=== PATIENT | female | born 1965 | race Caucasian/White ===

== ENCOUNTER 2019-08-23 16:10 | Emergency (ER) | payer OTHER, SELFPAY ==
[2019-08-23 16:24] VITALS: BP 112/96; PULSE 98; RESP 18; TEMP 36.8; O2SAT 98
--- NOTE | 2019-08-23 16:27 | ED.URI ---
HPI - URI/Sore Throat General Chief Complaint: Upper Respiratory Infection Stated Complaint: sore throat/cough Time Seen by Provider: 08/23/19 16:27 Source: patient and RN notes reviewed Mode of arrival: ambulatory Limitations: no limitations History of Present Illness HPI Narrative: A 53 y/o female, who is a nonsmoker and nondrinker, presents to the with a worsening sore throat and scratchy voice for the past 5 days. She reports associated mildly productive cough and rib pain from coughing. She denies any fevers, ear ache, edema, CP, vomiting, and all other medical complaints at this time. MD elicited complaint: sore throat Onset (ago): day(s) (5) Consistency: progressively worsening Associated symptoms: voice changes (scratchy), cough (mildly productive) and other (rib pain from coughing) Related Data Home Medications Medication Instructions Recorded Confirmed allopurinol 300 mg PO DAILY 08/23/19 08/23/19 dapagliflozin [Farxiga] 10 mg PO DAILY 08/23/19 08/23/19 glipizide 10 mg PO BID 08/23/19 08/23/19 losartan 12.5 mg PO DAILY 08/23/19 08/23/19 metformin 1,000 mg PO BID 08/23/19 08/23/19 omeprazole magnesium [Prilosec OTC] 20 mg PO DAILY 08/23/19 08/23/19 triamterene-hydrochlorothiazid 1 cap PO QAM 08/23/19 08/23/19 Allergies Allergy/AdvReac Type Severity Reaction Status Date / Time oxaprozin Allergy Mild Rash Verified 08/23/19 16:28 propoxyphene Allergy Mild Rash Verified 08/23/19 16:28 Review of Systems Review of Systems: Narrative: General/Constitutional: No weight loss,fever Eyes: N0: Redness,discharge Ears/Nose/Throat: No: Epistaxis,ear discharge, ear ache. Reports a sore throat and scratchy voice. Respiratory: Denies: Hemoptysis. Reports a mildly productive cough and rib pain from the cough. Cardio: No: CP or edema. Gastrointestinal: No Vomiting, Bleeding-rectal Skin: No Lumps, eruption Neurologic: No Focal Weakness,Sz Hematologic: Denies: Petechiae/Purpura Psychiatric: No: Suicida ideationl All Other Systems: Reviewed and Negative [facility] Past Medical History Medical History Arthritis Bilateral carpal tunnel syndrome DM (diabetes mellitus) History of kidney stones History of ovarian cyst Hx of migraines Surgical History Surgical History History of bilateral carpal tunnel release History of cholecystectomy History of dilation and curettage History of hysterectomy Social History Social History (Updated 08/23/19 @ 16:54 by Genaro Messer) Smoking status: Never smoker Exam Narrative: Exam Narrative: General Appearance: Well appearing, Well nourished EYE: PERRLA, Conjunctiva clear Ears: Auditory canal normal, TM normal Nose: Rhinorrhea, Mucousal erythema Mouth/Throat: MM moist, Uvula midline, Pharyngeal erythema Neck: Supple, No adenopathy Respiratory: No respiratory distress, Breath sounds equal, Clear to auscultation(with rare wheeze] Cardiovascular: RRR, No JVD Musculoskeletal: Non tender, Normal strength Skin: Warm, Dry Neurological: A&O x3, CN II-XII intact Psychiatric: Normal mood, Normal affect Course Vital Signs Vital signs: Vital Signs Temperature 98.3 F 08/23/19 16:24 Pulse Rate 98 08/23/19 16:24 Respiratory Rate 18 08/23/19 16:24 Blood Pressure 112/96 H 08/23/19 16:24 Pulse Oximetry 98 08/23/19 16:24 Temperature 98.3 F 08/23/19 16:24 Pulse Rate 98 08/23/19 16:24 Respiratory Rate 18 08/23/19 16:24 Blood Pressure 112/96 H 08/23/19 16:24 Pulse Oximetry 98 08/23/19 16:24 MDM - URI/Sore Throat Lab Data Labs: Influenza A Screen Negative Reference Range: Negative Influenza B Screen Negative Reference Range: Negative Discharge Plan Discharge Clinical Impression: Influenza-like illness Patient Disposition: Home, Self-Care Condition: Stable Instructions: Antibiotic Form, Acute
== END 2019-08-23 16:51 | disposition home or self-care (01) ==
PROVIDERS: Emergency Provider Emergency Medicine
DX: J02.9 Acute pharyngitis, unspecified (principal); R05 Cough; M19.90 Unspecified osteoarthritis, unspecified site; E11.9 Type 2 diabetes mellitus without complications
CPT/HCPCS: 87804; 99203; G0463

== ENCOUNTER 2022-02-11 10:08 | Emergency (ER) | payer BC, SELFPAY ==
[2022-02-11 10:39] VITALS: BP 117/63; PULSE 73; RESP 18; TEMP 37.1; O2SAT 100
--- NOTE | 2022-02-11 10:43 | ED.EYEPROB ---
HPI - Eye Problem General Chief complaint: Skin/Abscess/Foreign Body Stated complaint: swollen lt eye,rash Time Seen by Provider: 02/11/22 11:00 Source: patient and RN notes reviewed Mode of arrival: ambulatory Limitations: no limitations History of Present Illness HPI Narrative: 48-year-old female presents with concern for left eyelid redness, swelling. She also reports itchy red spots on her arms, face, neck. She reports these occurred after she was doing yard work on Thursday. Reports she used essential oil on the areas without relief. She denies trouble breathing, swollen lips, swollen tongue, trouble swallowing. She reports new spots have appeared after doing yard work on Thursday. MD chief complaint: eye redness Related Data Home Medications Medication Instructions Recorded Confirmed glipizide 10 mg tablet 10 mg PO BID 08/23/19 02/11/22 metformin 1,000 mg tablet 1,000 mg PO BID 08/23/19 02/11/22 triamterene 37.5 1 cap PO QAM 08/23/19 02/11/22 mg-hydrochlorothiazide 25 mg capsule diclofenac sodium 75 mg 75 mg PO BID 02/11/22 02/11/22 tablet,delayed release empagliflozin 25 mg tablet 25 mg BID 02/11/22 02/11/22 (Jardiance) simvastatin 20 mg tablet 20 mg DAILY 02/11/22 02/11/22 Allergies Allergy/AdvReac Type Severity Reaction Status Date / Time oxaprozin Allergy Mild Rash Verified 02/11/22 10:45 propoxyphene Allergy Mild Rash Verified 02/11/22 10:45 Review of Systems Review of Systems: CONSTITUTIONAL: Denies malaise, chills, sweats, or fever. EYES: Denies visual changes. Denies eye redness, irritation, discharge. Reports left eyelid swelling, redness, itching ENT: Denies rhinorrhea, congestion, sinus pain, otalgia or sore throat. SKIN: Reports itchy red raised spots on her arms, neck, face NEUROLOGIC: Denies numbness, weakness, or headache. PSYCHIATRIC: Denies anxiety or depression. All systems reviewed & are unremarkable except as noted in HPI and below PMFSH Past Medical History Medical History (Updated 02/11/22 @ 11:05 by Rosalina Villalta NP) Arthritis Bilateral carpal tunnel syndrome DM (diabetes mellitus) History of kidney stones History of ovarian cyst Hx of migraines Surgical History Surgical History History of bilateral carpal tunnel release History of cholecystectomy History of dilation and curettage History of hysterectomy Social History Social History (Updated 08/23/19 @ 16:54 by Genaro Messer) Smoking status: Never smoker Comments At time of signature, agree with nursing past medical, surgical, social and family history. There is no relevant family history pertinent to the presenting complaint Exam Narrative: GENERAL: Well-appearing, well-nourished, and in no acute distress. HEAD: Normocephalic, atraumatic. EYES: PERRLA, sclera clear, and EOMI. No nystagmus. Bilateral conjunctivae injected. Right eye upper and lower eyelid unremarkable, no periorbital edema noted. Left upper eyelid erythematous, edematous, nontender ENT: Nares clear, turbinates pink, no rhinorrhea or epistaxis. Mucous membranes moist. TM pearly barron with sharp light reflex bilaterally; no tragal tenderness. NECK: Supple. CHEST: No respiratory distress. Speaks in full sentences. HEART: Regular rate and rhythm. SKIN: Warm, dry. Scattered erythematous raised areas that are firm to touch noted to bilateral arms, neck, face NEURO: Alert and oriented x3. PSYCH: Normal mood and affect Course Course Emergency Course: Patient is aware of diagnosis, understands and agrees to treatment plan. Anticipatory guidance given. Patient agrees to follow-up as directed and is aware of reasons to seek care at the emergency department. Portions of this record may have been created with voice recognition software Level of Care: Express Care Visit Vital Signs Vital signs: Vital Signs Temperature 98.7 F 02/11/22 10:39 Pulse Rate 73 02/11/22 10:39 Respiratory Rate 18
== END 2022-02-11 11:13 | disposition home or self-care (01) ==
PROVIDERS: Emergency Provider Nurse Practitioner
DX: R21 Rash and other nonspecific skin eruption (principal); M19.90 Unspecified osteoarthritis, unspecified site; E11.9 Type 2 diabetes mellitus without complications
CPT/HCPCS: 99213; G0463

== ENCOUNTER 2022-06-09 12:19 | Emergency (ER) | payer BC, SELFPAY ==
[2022-06-09 12:54] VITALS: BP 106/64; PULSE 82; RESP 16; TEMP 36.9; O2SAT 98
--- NOTE | 2022-06-09 13:09 | ED.EAR ---
HPI - Ear Problem General Chief complaint: Ear Stated complaint: rt ear pain Time Seen by Provider: 06/09/22 13:00 Source: patient Mode of arrival: ambulatory Limitations: no limitations History of Present Illness HPI Narrative: Raoul is a 56-year-old female patient presenting to clinic today with complaints of right posterior ear pain. She reports that this has been going on for approximately 2 days. She denies any fever chills however she feels as though it may be a swollen lymph node. States that this area is tender. Denies any itching or burning Related Data Home Medications Medication Instructions Recorded Confirmed glipizide 10 mg tablet 10 mg PO BID 08/23/19 06/09/22 metformin 1,000 mg tablet 1,000 mg PO BID 08/23/19 06/09/22 triamterene 37.5 1 cap PO QAM 08/23/19 06/09/22 mg-hydrochlorothiazide 25 mg capsule diclofenac sodium 75 mg 75 mg PO BID 02/11/22 06/09/22 tablet,delayed release empagliflozin 25 mg tablet 25 mg BID 02/11/22 06/09/22 (Jardiance) simvastatin 20 mg tablet 20 mg DAILY 02/11/22 06/09/22 Allergies Allergy/AdvReac Type Severity Reaction Status Date / Time oxaprozin AdvReac Mild Rash Verified 06/09/22 13:07 propoxyphene AdvReac Mild Rash Verified 06/09/22 13:07 PMFSH Past Medical History Medical History (Updated 06/09/22 @ 13:12 by Toni Herzog, CHANDRAKANT) Arthritis Bilateral carpal tunnel syndrome DM (diabetes mellitus) History of kidney stones History of ovarian cyst Hx of migraines Surgical History Surgical History History of bilateral carpal tunnel release History of cholecystectomy History of dilation and curettage History of hysterectomy Social History Social History (Updated 08/23/19 @ 16:54 by Genaro Messer) Smoking status: Never smoker Comments At the time of my signature, I reviewed and agree with the nursing past medical, surgical, social, and family history. There is no relevant family history pertinent to the patient complaint. Exam Narrative: General: Well-developed, well nourished, in no apparent distress Head: Normocephalic, atraumatic Eyes: Pupils equally round and reactive to light bilaterally, EOM intact, sclera and conjunctive clear, no discharge, lids normal Ears: TMs intact and clear, ear canals clear, no drainage, grossly hearing normal. redness and mild swelling noted behind the right ear lobe. Mild tenderness to palpation without induration mild scaliness felt with area being mildly red Nose: Nares patent, no discharge, no inflammation, no sinus tenderness. Mouth: Oropharynx without lesions or masses, good dentition, MMM. Neck: Supple, trachea midline, no enlargement of anterior or posterior cervical nodes, no thyroid masses or goiter palpable. Cardio: Regular rate and rhythm, s1 and s2 normal, no murmur appreciated. Resp: Clear to auscultation bilaterally anteriorly and posteriorly, no rhonchi, rales, wheezing or rubs Course Course Emergency Course: Portions of this record may have been created with voice recognition software. Level of Care: Express Care Visit Vital Signs Vital signs: Vital Signs Temperature 36.9 C 06/09/22 12:54 Pulse Rate 82 06/09/22 12:54 Respiratory Rate 16 06/09/22 12:54 Blood Pressure 106/64 06/09/22 12:54 Pulse Oximetry 98 06/09/22 12:54 Oxygen Delivery Room Air 06/09/22 12:54 Temperature 36.9 C 06/09/22 12:54 Pulse Rate 82 06/09/22 12:54 Respiratory Rate 16 06/09/22 12:54 Blood Pressure 106/64 06/09/22 12:54 Pulse Oximetry 98 06/09/22 12:54 Oxygen Delivery Room Air 06/09/22 12:54 Vital signs reviewed Medical Decision Making MDM Narrative Medical decision making narrative: at the time of visit patient is resting comfortably on the exam table. I suspect the patient may have a skin infection to the back of her ear lobe however I cannot rule out a yeast like infection. Will send in prescription for
== END 2022-06-09 13:15 | disposition home or self-care (01) ==
PROVIDERS: Emergency Provider Nurse Practitioner Family
DX: L08.9 Local infection of the skin and subcutaneous tissue, unspecified (principal); B96.89 Other specified bacterial agents as the cause of diseases classified elsewhere; E11.9 Type 2 diabetes mellitus without complications
CPT/HCPCS: 99213; G0463